=== PATIENT | male | born 2000 | race Caucasian/White ===

== ENCOUNTER 2021-01-08 12:27 | Emergency (ER) | payer OTHER, SELFPAY ==
--- NOTE | ~2021-01-08 | XR_ITS ---
EXAMINATION: XR chest 2V EXAM DATE: 01/08/2021 13:05 INDICATION: Cough and fever. TECHNIQUE: Frontal and lateral projections of the chest obtained and reviewed. There is no prior keith dy for comparison. FINDINGS: Ill-defined right mid lung zone acute airspace disease suspicious for COVID 19 pneumonia. O ther acute possibilities include influenza, pulmonary edema or hemorrhage. Some chronic processes adolfo t can have this appearance include cryptogenic organizing pneumonia, desquamative interstitial pneumo yefri, nonspecific interstitial pneumonia, drug toxicity, connective tissue disease. Please clinically correlate and test as appropriate. No pneumothorax or pleural effusion. Cardiomediastinal silhouette is normal. IMPRESSION ill-defined right groundglass airspace disease could be COVID 19 pneumonia given community prevalence. Other possibilities above. Reviewed, dictated and finalized at location B. IMPRESSION ill-defined right groundglass airspace disease could be COVID 19 pne umonia given community prevalence. Other possibilities above.
[2021-01-08 12:38] VITALS: BP 134/74; PULSE 91; RESP 16; TEMP 36.6; O2SAT 97
--- NOTE | 2021-01-08 13:00 | ED.GENADULT ---
HPI - General Adult General Chief complaint: Upper Respiratory Infection Stated complaint: fever/cough/sob/vomiting Source: patient and family (Father) Mode of arrival: ambulatory Limitations: no limitations History of Present Illness HPI narrative: Patient is a 20-year-old male who presents to [facility] care via POV for evaluation of Covid-like symptoms that began 6 days ago. Additionally, patient reports subjective fever, vomiting, shortness of breath, dry cough, sweats, and chills. He reports his symptoms worsened over the past 3 days prompting today's visit. Ibuprofen provides mild relief. Nothing worsens symptoms. Patient is not vaccinated against Covid. He denies known exposure to sick contacts. Related Data Allergies Allergy/AdvReac Type Severity Reaction Status Date / Time venom-honey bee Allergy Unknown Other Verified 01/08/21 12:43 Review of Systems Review of Systems: Denies history of COPD, bronchitis, asthma, and pneumonia. Denies current/past tobacco use. Denies loss, change in appetite, fatigue, skin color changes, headache, nasal congestion/discharge, dizziness, lymphadenopathy, sinus problems, ear pain/drainage, chest pain, heart murmurs, heart palpitations, sore throat, wheezing, cyanosis, hemoptysis, hoarseness, orthopnea, pleuritic pain, nausea, diarrhea, and myalgias. PMFSH Comments I have reviewed and agree with the patient's past medical, surgical, social, and family hx as documented by the RN. There is no relevant family history pertinent to the presenting complaint. Exam Narrative: GENERAL: Well-appearing, well-nourished, and in no acute distress. HEAD: Normocephalic, atraumatic. No sinus tenderness or facial swelling appreciated. EYES: PERRLA and EOMI. No evidence of erythema, swelling, or drainage. ENT: Bilateral external ears and ear canals normal. Bilateral TMs are normal.No TM perforation. Nares clear, no rhinorrhea or epistaxis. Bilateral turbinates without erythema/ swelling. Mucous membranes moist and pink. Uvula is midline without erythema and swelling. No evidence of petechial rash, cobblestoning, lesions, ulcers, erythema, swelling, exudates, peritonsillar abscess, tenting, or drooling. Breath odor and voice normal. NECK: Supple. No Lymphadenopathy or nuchal rigidity appreciated. CHEST: Bilateral lung schwartz are clear to auscultation. No respiratory distress. Mild dry cough appreciated upon examination. No pleuritic cp. HEART: Regular rate and rhythm. No murmur, gallop, or rub heard. EXTREMITIES: Normal range of motion. No edema. SKIN: Warm, dry, no rash. NEURO: No focal deficits. Alert and oriented x3. Course Vital Signs Vital signs: Vital Signs Temperature 98 F 01/08/21 12:38 Pulse Rate 91 01/08/21 12:38 Respiratory Rate 16 01/08/21 12:38 Blood Pressure 134/74 01/08/21 12:38 Pulse Oximetry 97 01/08/21 12:38 Temperature 98 F 01/08/21 12:38 Pulse Rate 91 01/08/21 12:38 Respiratory Rate 16 01/08/21 12:38 Blood Pressure 134/74 01/08/21 12:38 Pulse Oximetry 97 01/08/21 12:38 Reviewed. Due to an elevated blood pressure, I had a detailed discussion with the patient and/or guardian regarding the need for follow-up with their primary care provider within the next 3-4 days. Patient verbalized understanding and agreed. Medical Decision Making Differential Diagnosis Differential Diagnosis: Allergic rhinitis, ABRS, acute viral sinusitis, strep pharyngitis, nasopharyngitis, bronchitis, pneumonia, AOM, otitis externa, viral URI, influenza Medical Records Medical records reviewed: Yes I reviewed the external patient's medical records. Vital Signs Vital Signs: Vital Signs Temperature 98 F 01/08/21 12:38 Pulse Rate 91 01/08/21 12:38 Respiratory Rate 16 01/08/21 12:38 Blood Pressure 134/74 01/08/21 12:38 Pulse Oximetry 97 01/08/21 12:38 Temperature 98 F 01/08/21 12:38 Pulse Rate 91 01/08/21 12:38 Respiratory Rate 16
== END 2021-01-08 13:20 | disposition home or self-care (01) ==
PROVIDERS: Emergency Provider Nurse Practitioner Family
DX: U07.1 COVID-19 (principal)
CPT/HCPCS: 71046; 87426; 99203; C9803; G0463